=== PATIENT | male | born 1965 | race Caucasian/White ===

== ENCOUNTER 2020-12-19 12:41 | Emergency (ER) | payer OTHER ==
[~2020-12-19] VITALS: Ht 188 cm; Wt 101.6 kg
[2020-12-19 13:51] LABS: ABSOLUTE NEUTROPHILS 2.8 thou/uL (1.4-8.2); EOSINOPHILS 2.1 % (0.0-3.0); HEMATOCRIT 47.8 % (42.0-52.0); LYMPHOCYTES 33.8 % (24.0-44.0); MCH 29.3 pg (26.0-34.0); MCHC 33.6 g/dL (28.0-37.0); MCV 87.3 fL (80.0-100.0); MONOCYTES 9.8 % (1.0-8.0); PLATELET COUNT 229 thou/uL (150-400); POLYS 53.3 % (36.0-66.0); RBC 5.47 mil/uL (4.50-6.00); RDW 13.3 % (10.5-14.5); WBC 5.2 thou/uL (4.0-11.0)
[2020-12-19 13:59] LABS: POTASSIUM 4.2 mmol/L (3.5-5.1)
[2020-12-19 14:05] LABS: ALBUMIN 4.3 g/dL (3.4-5.0); TOTAL BILIRUBIN 0.5 mg/dL (0.2-1.0); TOTAL PROTEIN 7.8 g/dL (6.4-8.2)
[2020-12-19 14:09] LABS: URINE BILIRUBIN NEGATIVE (Negative); URINE BLOOD NEGATIVE (Negative); URINE CLARITY CLEAR; URINE COLOR YELLOW; URINE GLUCOSE-RANDOM* NEGATIVE (Negative); URINE KETONES NEGATIVE (Negative); URINE LEUKOCYTES-REFLEX NEGATIVE (Negative); URINE NITRITE-REFLEX NEGATIVE (Negative); URINE PROTEIN (DIPSTICK) NEGATIVE (Negative); URINE SPECIFIC GRAVITY >= 1.030 (1.005-1.035); URINE UROBILINOGEN 0.2 E.U./dl (0.2-1.0)
[2020-12-19 17:18] VITALS: BP 152/96
== END 2020-12-19 17:18 | disposition home or self-care (01) ==
LOC: ER 12:41
PROVIDERS: Physician Assistant
DX: N28.89 Other specified disorders of kidney and ureter (principal); R22.2 Localized swelling, mass and lump, trunk

== ENCOUNTER → 2020-12-24 | Outpatient (CLI) | payer OTHER ==
[~2020-12-24] VITALS: Ht 190.5 cm; Wt 100.0 kg
[2020-12-24 10:19] VITALS: BP 118/82
[2020-12-24 11:40] VITALS: BP 140/80
[2020-12-24 11:56] VITALS: BP 132/86
[2020-12-24 12:00] VITALS: BP 133/88
[2020-12-24 12:05] VITALS: BP 142/89
--- NOTE | 2020-12-29 23:06 | PATH ---
[facility] [address] [place] [address] PATHOLOGY RPT PROCEDURE Name: BRANDON MILLER V Room #: REG GRICELDA Conde.#: [id number] Admission: 12/24/20 Date of : 61 Discharge: Report #: [id number] Path Case #: [id number] [facility] Accession Number: [id number] . 01 Material submitted: . chest - CHEST WALL MASS. Modifiers: wall . 01 Clinical history: . NO KNOWN DRUG ALLERGIES CAT/BIOPSY/RIGHT MEDIASTINAL MASS . 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 (See comment) . (TERRA:jill; 12/29/2020) [facility] 12/29/2020 2254 Local . 02 Comment: Sections show needle core biopsy fragments of an atypical lymphoid infiltrate. The atypical lymphocytes are small, round and mature-appearing with condensed chromatin and scant cytoplasm with occasional spindled morphology. Focal areas of pale staining spindled cells are also noted. Neither a high mitotic rate nor abundant single cell necrosis is seen. Geographic necrosis is not identified. . Properly-controlled immunohistochemical stains are performed: . Block A2: CD20 - Stains rare scattered B-cells; PAX-5 - Essentially non-reactive; CD3 - Atypical lymphocytes are diffusely reactive; CD5 - Atypical lymphocytes are diffusely reactive; CD4 - Atypical lymphocytes are diffusely reactive; CD8 - Atypical lymphocytes are diffusely reactive; CD7 - Atypical lymphocytes are diffusely reactive; CD1a - Atypical lymphocytes are diffusely reactive; AE1/AE3 - Stains scattered admixed epithelial cells and the spindled cell component; Ki-67 - Proliferative index of approximately 80-90%; CD30 - Non-reactive; ALK-1 - Non-reactive; JOB - Non-reactive; CD10 - Stains scattered cells; BCL-6 - Essentially non-reactive; BCL-2 - Stains scattered cells; [facility] [address] [place] [address] PATHOLOGY RPT PROCEDURE Name: BRANDON MILLER V Room #: REG [facility]#: [id number] Admission: 12/24/20 Date of : 61 Discharge: Report #: [id number] Path Case #: [id number] CD23 - Non-reactive; Cyclin D1 - Lacks diffuse nuclear staining; MUM1 - Essentially non-reactive. . Overall, the diagnosis is an atypical/immature T-cell population with admixed epithelial cells most consistent with thymoma. . The case is co-reviewed with Dr. Laina Aguilar who agrees on 12/29/2020. Clinical and radiographic correlation is required. . (CLW:mml; 12/29/2020) . 02 Electronically signed: . Gaviota Esquivel MD, Pathologist NPI- [id number] . 01 Gross description: . The specimen is received in formalin, labeled "[place], Brandon, chest wall biopsy" received as 4 soft purcell tissue cores measuring up to 1.2 x less than 0.1cm entirely submitted in A1. ([facility]; 12/24/2020) . HOMERO/HOMERO 12/24/2020 1802 Local . 02 Pathologist provided ICD-10: R22.2 . 02 CPT . 410270, I84888, F28330, 272039 Specimen Comment: A courtesy copy of this report has been sent to [phone] Specimen Comment: Report sent to Specimen Comment: Report sent to Performed at: [address], [place] [id number] MD Cj Jett MD Phone: [phone] Performed at: [address] [facility] [address] [place] [id number] MD Gaviota Esquivel MD Phone: [phone]
== END ==
LOC: CAT 08:54
PROVIDERS: ATTEND Family Medicine
DX: D49.89 Neoplasm of unspecified behavior of other specified sites (principal); R10.11 Right upper quadrant pain; Z82.49 Family history of ischemic heart disease and other diseases of the circulatory system

== ENCOUNTER → 2021-06-13 | Outpatient (CLI) | payer OTHER | LOC: RAD 10:50 | PROVIDERS: ATTEND Nurse Practitioner | DX: M25.512 Pain in left shoulder (principal) ==

== ENCOUNTER → 2021-07-01 | Outpatient (CLI) | payer OTHER | END | disposition home or self-care (01) | LOC: MRI 12:44 | PROVIDERS: ATTEND Nurse Practitioner | DX: M25.512 Pain in left shoulder (principal) ==